=== PATIENT | female | born 1930 | race Caucasian/White ===

== ENCOUNTER 2017-01-23 17:11 | Emergency (ER) | payer MEDICARE, BC ==
[2017-01-23] MEDS ORDERED: LIDOCAINE 1%/EPINEPHRINE INJ 20 ML VIAL INJ ONE (18:22)
--- NOTE | 2017-01-23 18:22 | ER Document Report ---
ED Fall - General Chief Complaint: Fall Stated Complaint: FALL/HIP PAIN Information source: Patient Notes: Patient is an 86-year-old female who was walking down the steps and supposedly fell off the second step forward hitting her head. It was unwitnessed but family was in the other room and stated that they do not believe the patient lost consciousness. They state that the patient has some mild dementia and is on no blood thinner medications. They state that the patient is acting at baseline. Patient complains of pain only to the laceration site over her right eye. She denies any blurry vision, neck pain, nausea, vomiting, chest pain, abdominal pain, or back pain. Patient does state some pain that is mild to her right shoulder and right hip. She denies any inciting incident that caused the fall other than "slipping". TRAVEL OUTSIDE OF THE [place] IN LAST 30 DAYS: No - HPI Occurred: Just prior to arrival Where: Home Context: Slipped Associated symptoms: denies: Lost consciousness, Seizure Location of injury/pain: Other - See above Quality of pain: Achy Severity: Moderate Pain Level: Denies Prehospital interventions: C-collar. No: Backboard - Related data Allergies/Adverse Reactions: morphine [Morphine] Allergy (Verified 12/16/12 17:38) anesthesia Allergy (Uncoded 12/16/12 17:38) Past Medical History - General Information source: Patient - Social History Smoking Status: Unknown if Ever Smoked Cigarette use (# per day): No Chew tobacco use (# tins/day): No Smoking Education Provided: No Frequency of alcohol use: None Family History: Reviewed & Not Pertinent - Past Medical History Cardiac Medical History: Reports: Hx Hypercholesterolemia, Hx Hypertension Pulmonary Medical History: Denies: Hx Tuberculosis Psychiatric Medical History: Reports: Hx Depression Past Surgical History: Reports: Hx Cholecystectomy, Hx Hysterectomy, Hx Tonsillectomy. Denies: Hx Appendectomy, Hx Bowel Surgery, Hx Section, Hx Coronary Artery Bypass Graft, Hx Gastric Bypass Surgery, Hx Herniorrhaphy, Hx Mastectomy, Hx Pacemaker, Hx Tubal Ligation - Immunizations Hx Diphtheria, Pertussis, Tetanus Vaccination: Yes - 2004 Review of Systems - Review of Systems Constitutional: denies: Fever EENT: denies: Eye discharge, Nose congestion, Nose discharge Cardiovascular: denies: Chest pain, Palpitations, Dizziness Respiratory: denies: Cough, Short of breath Gastrointestinal: denies: Abdomen distended, Vomiting Genitourinary: denies: Dysuria Musculoskeletal: denies: Leg swelling Skin: Other - no hives. denies: Rash Neurological/Psychological: Other - no slurred speech -: Yes All other systems reviewed and negative Physical Exam - Vital signs Vitals: Temp Pulse Resp BP Pulse Ox 97.7 F 75 18 142/68 H 95 01/23/17 17:23 01/23/17 17:23 01/23/17 17:23 01/23/17 17:23 01/23/17 17:23 Notes: Reviewed vital signs and nursing note as charted by RN. CONSTITUTIONAL: Alert and oriented and responds appropriately to questions. Well -appearing; well-nourished HEAD: Normocephalic; laceration to the right lateral aspect of the patient's orbit. EYES: PERRL ENT: Normal nose; no rhinorrhea; moist mucous membranes; pharynx without lesions noted NECK: Supple without meningismus; c-collar in place; non-tender; no step-offs. CARD: Regular rate and rhythm; no murmurs, no clicks, no rubs, no gallops; symmetric distal pulses RESP: Normal chest excursion without splinting or tachypnea; breath sounds clear and equal bilaterally; no wheezes, no rhonchi, no rales ABD/GI: Normal bowel sounds; non-distended; soft, non-tender, no rebound, no guarding; no palpable organomegaly or masses BACK: The back appears normal on logroll and is non-tender to palpation EXT: Normal ROM in all joints but the patient does have some mild tenderness without any obvious deformity to the right anterior shoulder and right lateral hip. There is no limb shortening. Neurovascular intact distally.; capillary refill < 2 seconds; no acute lesions noted NEURO: CN II through XII are intact. Moves all extremities equally; Motor and sensory function intact PSYCH: The patient's mood and manner are appropriate. Grooming and personal hygiene are appropriate. Course - Re-evaluation Re-evalutation: Patient was taken to CT scan where CT of the head and cervical spine was performed. Radiologist called and stated he sees a traumatic subarachnoid hemorrhage. I called and spoke to the trauma center at [facility] and spoke to the fellow on-call. He has accepted the patient in transfer. Patient has had laboratory values ordered including coagulation profile. Tetanus is up-to-date. I will x-ray the right shoulder as well as the right hip and rapidly suture the patient's wound and transport the patient to [facility]. - Vital Signs Vital signs: Temp Pulse Resp BP Pulse Ox 97.7 F 75 18 142/68 H 95 01/23/17 17:23 01/23/17 17:23 01/23/17 17:23 01/23/17 17:23 01/23/17 17:23 Procedures - Laceration/Wound Repair Right Face Wound length (cm): 2 Wound's Depth, Shape: Superficial Laceration pre-procedure: Sterile PPE donned Anesthetic type: 1% Lidocaine w/epi Volume Anesthetic (mLs): 5 Wound explored: Clean Wound Repaired With: Sutures Suture Size/Type: 5:0, Prolene Number of Sutures: 3 Post-procedure wound care: Sterile dressing applied Post-procedure NV exam normal: Yes Complications: No Critical Care Note - Critical Care Note Total time excluding time spent on procedures (mins): 35 Discharge - Discharge Clinical Impression: Traumatic subarachnoid hemorrhage Qualifiers: Encounter type: initial encounter Loss of consciousness presence/duration: without LOC Qualified Code(s): S06.6X0A - Traumatic subarachnoid hemorrhage without loss of consciousness, initial encounter Laceration of head Qualifiers: Encounter type: initial encounter Location of open wound of head: scalp Foreign body presence: without foreign body Qualified Code(s): S01.01XA - Laceration without foreign body of scalp, initial encounter Contusion of right hip, initial encounter Qualifiers: Encounter type: initial encounter Qualified Code(s): S70.01XA - Contusion of right hip, initial encounter Contusion of right shoulder, initial encounter Qualifiers: Encounter type: initial encounter Qualified Code(s): S40.011A - Contusion of right shoulder, initial encounter Condition: Fair Disposition: [facility] Referrals: ELDON BELLAMY MD [Primary Care Provider] - Follow up as needed
[2017-01-23] MEDS ORDERED: LIDOCAINE 1.5%/EPINEPHRINE INJ-PF 30 ML SDV ONE (18:49)
[2017-01-23] MEDS ORDERED: ACETAMINOPHEN 325 MG TABLET PO ONE (18:59)
[2017-01-23] MEDS ORDERED: BACITRACIN ZINC OINTMENT 15 GM TP ONE (19:24)
[2017-01-23 20:14] VITALS: BP 122/90
== END 2017-01-23 20:15 | disposition short-term general hospital (02) ==
LOC: ER 17:11
PROC: 0HQ1XZZ Repair Face Skin, External Approach (ICD-10-PCS; principal; 2017-01-23)
DX: S06.6X0A Traumatic subarachnoid hemorrhage without loss of consciousness, initial encounter (principal); S01.111A Laceration without foreign body of right eyelid and periocular area, initial encounter; S01.01XA Laceration without foreign body of scalp, initial encounter; S70.01XA Contusion of right hip, initial encounter; S40.011A Contusion of right shoulder, initial encounter; W10.9XXA Fall (on) (from) unspecified stairs and steps, initial encounter; Y92.009 Unspecified place in unspecified non-institutional (private) residence as the place of occurrence of the external cause; F03.90 Unspecified dementia, unspecified severity, without behavioral disturbance, psychotic disturbance, mood disturbance, and anxiety; Z79.01 Long term (current) use of anticoagulants; Z88.5 Allergy status to narcotic agent; Z88.4 Allergy status to anesthetic agent; I10 Essential (primary) hypertension
CPT/HCPCS: 99291; 73060; 72170; 70450; 72125; 12011; A9270; J3490

== ENCOUNTER 2017-10-02 02:32 | Emergency (ER) | payer MEDICARE, BC ==
[2017-10-02] MEDS ORDERED: LORAZEPAM INJ 2 MG/1 ML VIAL IV ONE (02:57)
[2017-10-02] MEDS ORDERED: ONDANSETRON HCL INJ/PF 4 MG/2 ML SDV IV ONE (02:59)
--- NOTE | 2017-10-02 03:02 | ER Document Report ---
ED General - General Chief Complaint: Nausea/Vomiting Stated Complaint: VOMITING Time Seen by Provider: 10/02/17 02:46 Notes: Patient is an 86-year-old female presents with complaint of increasing altered mental status and shaking and also vomiting. 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 He says usually she is able to walk without too much difficulty. He says she does have a history of a mild resting tremor. She saw a specialist at [facility] in September 18 was told that she may have early stages of Parkinson's in the range for a MRI of her brain for December. says in last 2 days she has looks unwell and has had a large amount shaking today she was barely unable to walk and then started having vomiting and has not been eating or drinking. says that the patient does have some dementia. Says the patient is on Ativan 0.5 mg at nighttime for the shaking. No other new medication changes. No other complaints at this time. No recent fevers or infections. Patient denies abdominal pain. is unsure when last bowel movement was. He denies any diarrhea that he is aware of. He says that the vomit was more like a spitting up phlegm. He says that she is rapidly declined in the last 24 hours. TRAVEL OUTSIDE OF THE [place] IN LAST 30 DAYS: No - Related Data Allergies/Adverse Reactions: morphine [Morphine] Allergy (Verified 10/02/17 02:36) anesthesia Allergy (Uncoded 10/02/17 02:36) Past Medical History - Social History Smoking Status: Never Smoker Frequency of alcohol use: None Drug Abuse: None Family History: Reviewed & Not Pertinent Patient has suicidal ideation: No Patient has homicidal ideation: No - Past Medical History Cardiac Medical History: Reports: Hx Hypercholesterolemia, Hx Hypertension Pulmonary Medical History: Denies: Hx Tuberculosis Renal/ Medical History: Denies: Hx Peritoneal Dialysis Psychiatric Medical History: Reports: Hx Depression Past Surgical History: Reports: Hx Cholecystectomy, Hx Hysterectomy, Hx Tonsillectomy. Denies: Hx Appendectomy, Hx Bowel Surgery, Hx Section, Hx Coronary Artery Bypass Graft, Hx Gastric Bypass Surgery, Hx Herniorrhaphy, Hx Mastectomy, Hx Pacemaker, Hx Tubal Ligation - Immunizations Hx Diphtheria, Pertussis, Tetanus Vaccination: Yes - 2005 Review of Systems - Review of Systems Notes: My Normal Review Basic REVIEW OF SYSTEMS: CONSTITUTIONAL : Denies fever, chills, or sweats. Denies recent illness. EENT: Denies eye, ear, throat, or mouth pain or symptoms. Denies nasal or sinus congestion. CARDIOVASCULAR: Denies chest pain. RESPIRATORY: Denies cough, cold, or chest congestion. Denies shortness of breath, difficulty breathing, or wheezing. GASTROINTESTINAL: Denies abdominal pain. Some vomiting. GENITOURINARY: Denies difficulty urinating, painful urination, burning, frequency, or blood in urine. MUSCULOSKELETAL: Denies neck or back pain or joint pain or swelling. SKIN: Denies rash or skin lesions. HEMATOLOGIC : Denies easy bruising or bleeding. LYMPHATIC: Denies swollen, enlarged glands. NEUROLOGICAL: Increased confusion. Inability to walk. Worsening tremor. ALL OTHER SYSTEMS REVIEWED AND NEGATIVE. Physical Exam - Vital signs Vitals: Temp Pulse Resp BP Pulse Ox 98.5 F 41 L 20 163/51 H 96 10/02/17 02:39 10/02/17 02:39 10/02/17 02:39 10/02/17 02:39 10/02/17 02:39 - Notes Notes: General Appearance: Well nourished, alert, patient is lying in bed with severe tremor. She is unwell appearing. She is slightly diaphoretic. She has a difficult time talking due to tremor. Vitals: reviewed, See vital signs table. Head: no swelling or tenderness to the head Eyes: PERRL, EOMI, Conjuctiva clear Mouth: No decreasd moisture Throat: No tonsillar inflammation, No airway obstruction, No lymphadenopathy Neck: Supple, no neck tenderness Lungs: No wheezing, No rales, No rhonci, No accessory muscle use, good air exchange bilaterally. Heart: Normal rate, Regular rythm, No murmur, no rub Abdomen: Normal BS, soft, No rigidity, No abdominal tenderness, No guarding, no rebound, no abdominal masses, no organomegaly Extremities: strength 5/5 in all extremities, good pulses in all extremities, no swelling or tenderness in the extremities, no edema. Skin: warm, dry, appropriate color, no rash Neuro: speech is stuttered, oriented x 3, normal affect, responds appropriately to questions. Severe tremor. Gait not tested due to severe tremor and her having difficulty walking at home already. Cranial nerves II through XII are intact. She has equal strength in all 4 extremities. Course - Re-evaluation Re-evalutation: 10/02/17 03:57 Patient now looks much improved. Her shaking has decreased tremendously. She is now smiling and interactive and talking normally. Seems that the Ativan made a huge difference. Still pending CT scan and chest x-ray. Once I have this back I will reevaluate the patient one time. 10/02/17 05:07 She continues to look much improved and feels much improved and continues to be smiling and looking very well with much decreased tremor. Being that she had such a good response that I have and I asked the hospital bit further history about medication she is on. He does mention that the Ativan was started proximal week ago and the clonazepam was stopped. He says now the is apparent that her gradual worsening of her symptoms started after the change of the medication. said that the patient was doing much better when on the clonazepam. She is only taking the Ativan once a day. I suspect the long pauses of not having coverage the benzodiazepine due to the short-acting nature of Ativan was likely is leading to her worsening tremors and shakes and feeling unwell. I will place her back on clonazepam. I looked back thru the records and she was on 0.5 mg every 8 hours. I have written a prescription for this. I will give her 1 dose before she leaves here. She has a follow-up appoint with Dr. Hays this . I informed the also contact her neurologist at [facility] to make them aware of the patient change. agrees with plan patient will be discharged home. I strongly encouraged him to return to ER if she has worsening tremor, vomiting, fevers, or she appears to be worsening any way. Has been agrees with plan and patient will be discharged home. Dictation of this chart was performed using voice recognition software; therefore, there may be some unintended grammatical errors. - Vital Signs Vital signs: Temp Pulse Resp BP Pulse Ox 98.5 F 41 L 21 H 143/59 H 92 10/02/17 02:39 10/02/17 02:39 10/02/17 03:24 10/02/17 03:24 10/02/17 03:24 - Laboratory Result Diagrams: 10/02/17 03:11 10/02/17 03:11 Laboratory results interpreted by me: 1110/02/17 10/02/17 03:05 03:11 03:35 VBG pH 7.49 H Potassium 3.4 L Glucose 119 H Urine Protein 30 H Urine Ketones 20 H Urine Ascorbic Acid 40 H - EKG Interpretation by Me Additional EKG results interpreted by me: 10/02/17 03:40 EKG is reviewed and interpreted by me. EKG shows sinus rhythm with rate of [address] segment elevation or depression. No ischemic T-wave inversions. Occasional PVCs. CT interval is prolonged. QRS duration is within normal range. QTc interval is borderline. Patient has sinus arrhythmia when comparing her EKG to December 17, 2012. Discharge - Discharge Clinical Impression: Tremor Additional Instructions: Please stop taking the Lorazepam. Please start taking the Clonazepam. This should give you better treatment of your tremors over the course of a 24 hour period. Please return to the ER immediately if you develop worsening tremors, vomiting, difficulty breathing, fevers, or if you feel unwell. Please contact Dr. Dutton at [facility] and inform them of the medication change. Prescriptions: Clonazepam [Klonopin] 0.5 mg PO Q8 #30 tablet Referrals: ELDON BELLAMY MD [Primary Care Provider] - Follow up in 3-5 days
[2017-10-02 03:32] LABS: ABSOLUTE LYMPHOCYTES (AUTO) 1.5 10^3/uL (0.5-4.7); ABSOLUTE MONOCYTES (AUTO) 0.7 10^3/uL (0.1-1.4); ABSOLUTE NEUT (AUTO) 7.5 10^3/uL (1.7-8.2); BASOPHILS % (AUTO) 0.4 % (0-2); EOSINOPHILS % (AUTO) 0.1 % (0-6); HEMATOCRIT 40.7 % (36.0-47.0); HEMOGLOBIN 14.1 g/dL (12.0-15.5); HGB HCT DIFFERENCE 1.6; LYMPHOCYTES % (AUTO) 15.1 % (13-45); MEAN CORPUSCULAR HEMOGLOBIN 31.9 pg (27.0-33.4); MEAN CORPUSCULAR HGB CONC 34.6 g/dL (32.0-36.0); MEAN CORPUSCULAR VOLUME 92 fl (80-97); MONOCYTES % (AUTO) 7.6 % (3-13); RED CELL DISTRIBUTION WIDTH 13.6 % (11.5-14.0); SEGMENTED NEUTROPHILS % (AUTO) 76.8 % (42-78); WHITE BLOOD COUNT 9.8 10^3/uL (4.0-10.5)
[2017-10-02 03:39] LABS: ALANINE AMINOTRANSFERASE 31 U/L (9-52); ALBUMIN 4.3 g/dL (3.5-5.0); ALKALINE PHOSPHATASE 91 U/L (38-126); ANION GAP 14 (5-19); ASPARTATE AMINO TRANSFERASE 23 U/L (14-36); BILIRUBIN,DIRECT 0.2 mg/dL (0.0-0.4); BILIRUBIN,TOTAL 0.8 mg/dL (0.2-1.3); BLOOD UREA NITROGEN 13 mg/dL (7-20); CALCIUM 9.7 mg/dL (8.4-10.2); CARBON DIOXIDE 26 mmol/L (22-30); CHLORIDE 98 mmol/L (98-107); CREATINE KINASE 80 U/L (30-135); CREATININE RESULT 0.72 mg/dL (0.52-1.25); GLUCOSE 119 mg/dL (75-110); MAGNESIUM 1.8 mg/dL (1.6-2.3); POTASSIUM 3.4 mmol/L (3.6-5.0); SODIUM 138.3 mmol/L (137-145); TOTAL PROTEIN 7.3 g/dL (6.3-8.2)
[2017-10-02 03:43] LABS: AMORPHOUS SEDIMENT,URINE 1+ /HPF; APPEARANCE,URINE CLOUDY; BILIRUBIN,URINE NEGATIVE (NEGATIVE); GLUCOSE, URINE NEGATIVE (NEGATIVE); KETONES,URINE 20 mg/dL (NEGATIVE); LEUKOCYTE ESTERASE,URINE NEGATIVE (NEGATIVE); NITRITE,URINE NEGATIVE (NEGATIVE); PROTEIN,URINE 30 mg/dL (NEGATIVE); URINE SPECIFIC GRAVITY 1.018; UROBILINOGEN,URINE NEGATIVE mg/dL (<2.0)
[2017-10-02 03:48] LABS: VENOUS BLOOD BASE EXCESS 7.8 mmol/L; VENOUS BLOOD HCO3 31.9 mmol/L (20-32); VENOUS BLOOD PCO2 42.5 mmHg (35-63); VENOUS BLOOD PH 7.49 (7.30-7.42)
[2017-10-02 03:51] LABS: CREATINE KINASE MB 1.44 ng/mL (<4.55)
[2017-10-02 03:52] LABS: TROPONIN I < 0.012 ng/mL
--- NOTE | 2017-10-02 04:24 | RADIOLOGY REPORT (SQ) ---
EXAM DESCRIPTION: CT HEAD WITHOUT COMPLETED DATE/TIME: 10/02/2017 4:06 am REASON FOR STUDY: severe shaking, altered . History of dementia, may have early stage of Parkinson' s. Nausea/ vomiting x2 days. COMPARISON: CT head 01/23/2017, 01/15/2016. TECHNIQUE: Axial images acquired through the brain without intravenous contrast. Images reviewed wi th bone, brain and subdural windows. Images stored on PACS. All CT scanners at this facility use dose modulation, iterative reconstruction, and/or weight based d osing when appropriate to reduce radiation dose to as low as reasonably achievable (ALARA). [facility]: Dose Right [facility]: CareDose [facility]: Dose Right [facility]: Teradose 4D [facility]: [employer] Technologies RADIATION DOSE: Up-to-date CT equipment and radiation dose reduction techniques were employed. CTDIv ol: 64.6 mGy. DLP: 1267 mGy-cm.mGy. LIMITATIONS: None. FINDINGS: VENTRICLES: Prominent. CEREBRUM: No mass effect. No hemorrhage. No midline shift. Areas of low density in the white matte r most likely due to chronic micro-vascular ischemic change. No evidence for acute territorial infar ction. CEREBELLUM: No hemorrhage. No alteration of density. No evidence for acute infarction. EXTRAAXIAL SPACES: Age-related involutional change. No fluid collections. ORBITS AND GLOBE: Symmetrical contour of the globes. CALVARIUM: No depressed fracture. PARANASAL SINUSES: No air-fluid level. SOFT TISSUES: No hematoma. IMPRESSION: No acute intracranial hemorrhage or acute territorial infarct. Chronic changes of atrop hy and microvascular ischemia. EVIDENCE OF ACUTE STROKE: NO. TECHNICAL DOCUMENTATION: JOB ID: [id number] [facility] Quality ID # [id number]: Final reports with documentation of one or more dose reduction techniques (e.g., Au tomated exposure control, adjustment of the mA and/or kV according to patient size, use of iterative reconstruction technique) 2010 [email or web address]- All Rights Reserved
--- NOTE | 2017-10-02 04:27 | RADIOLOGY REPORT (SQ) ---
EXAM DESCRIPTION: CHEST SINGLE VIEW COMPLETED DATE/TIME: 10/02/2017 4:09 am REASON FOR STUDY: confused COMPARISON: Chest x-ray 12/16/2012. EXAM PARAMETERS: NUMBER OF VIEWS: One view. TECHNIQUE: Single frontal radiographic view of the chest acquired. RADIATION DOSE: NA LIMITATIONS: None. FINDINGS: LUNGS AND PLEURA: No consolidation, pneumothorax or pleural effusion. MEDIASTINUM AND HILAR STRUCTURES: No masses. Contour normal. HEART AND VASCULAR STRUCTURES: Heart upper normal limit in size. No overt vascular congestion. BONES: There are healed right-sided rib fractures. HARDWARE: None in the chest. IMPRESSION: No acute radiographic finding in the chest. TECHNICAL DOCUMENTATION: JOB ID: [id number] 2010 [employer]- All Rights Reserved
[2017-10-02] MEDS ORDERED: CLONAZEPAM 1 MG TABLET PO ONE (04:56)
[2017-10-02 06:03] VITALS: BP 133/64
--- NOTE | 2017-10-02 07:59 | EKG REPORT ---
SEVERITY:- ABNORMAL ECG - SINUS RHYTHM SUPRAVENTRICULAR BIGEMINY AND PVC. FIRST DEGREE AV BLOCK LVH W/ REPOL ABNORMALITIES, POSSIBLE ISCHEMIA BORDERLINE PROLONGED QT INTERVAL : Confirmed by: Fortunato Salas MD 02-Oct-2017 07:58:47
== END 2017-10-02 06:03 | disposition home or self-care (01) ==
LOC: ER 02:32
DX: R25.1 Tremor, unspecified (principal); R11.2 Nausea with vomiting, unspecified; F03.90 Unspecified dementia, unspecified severity, without behavioral disturbance, psychotic disturbance, mood disturbance, and anxiety; R61 Generalized hyperhidrosis; I49.3 Ventricular premature depolarization; I10 Essential (primary) hypertension; Z88.5 Allergy status to narcotic agent; Z88.4 Allergy status to anesthetic agent; Z90.49 Acquired absence of other specified parts of digestive tract; Z90.710 Acquired absence of both cervix and uterus
CPT/HCPCS: 93005; 99285; 96374; 96375; 36415; 82553; 82550; 83735; 85025; 80053; 81001; 84484; 82803; 71010; 70450; 93010; A9270; J2060; J2405

== ENCOUNTER → 2017-10-17 | Outpatient (CLI) | payer MEDICARE, BC ==
--- NOTE | 2017-10-17 16:47 | RADIOLOGY REPORT (SQ) ---
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 Images stored on PACS. LIMITATIONS: None. FINDINGS: ANATOMY: No developmental anomalies. Normal vascular flow voids. Pituitary fossa normal. CSF SPACES: Normal in size and contour. No hemorrhage. CEREBRUM: Extensive hemispheric white matter small vessel disease, with increased FLAIR/ T2 signal th roughout the bifrontal and biparietal white matter. Multiple lacunar infarcts in the bilateral basal ganglia, deep periventricular white matter, right and left thalamus. Diffusion weighted images are negative for acute infarcts. No acute intracranial hemorrhage, mass effect, or midline shift. POSTERIOR FOSSA: Moderate chronic white matter disease in the mid carlo. . Old lacunar infarcts are present in the inferior right and left cerebellar hemispheres. On axial T2 images 12-14, there is decreased visualization of the substantia nigra in the brainstem w hich correlates with parkinsonism. DIFFUSION IMAGING: Negative for acute or sub-acute infarction. ORBITS: Post cataract surgery bilaterally. No orbital masses or proptosis PARANASAL SINUSES: No fluid levels. Mucosa normal. OTHER: No other significant finding. IMPRESSION: Decreased cons acuity of the substantia nigra on gradient echo and T2 weighted images co rrelates with a history of parkinsonism Extensive small vessel chronic white matter disease. No acute findings EVIDENCE OF ACUTE STROKE: NO. TECHNICAL DOCUMENTATION: JOB ID: [id number]- All Rights Reserved
== END ==
LOC: RAD 13:58
PROVIDERS: ATTEND Physician Assistant
DX: G21.9 Secondary parkinsonism, unspecified (principal)
CPT/HCPCS: 70551